=== PATIENT | female | born 1985 | race Caucasian/White ===

== ENCOUNTER 2020-05-27 13:38 | Outpatient (CLI) | payer OTHER, SELFPAY ==
--- NOTE | 2020-06-01 12:00 | WPDHOLTEREM ---
Holter/Event Monitor Holter/Event Monitor Date of procedure: 06/01/20 Procedure Type: 24 hour Holter monitor Diagnosis: Palpitations Indications: Palpitations Image/Tracing Quality: Adequate With significant artifact in some rhythm strips Finding: Predominant underlying rhythm is sinus rhythm with episodes of sinus tachycardia; heart rate ranges between 60 beats per minute to 156 beats per minute, average heart rate 91 beats per minute. Ventricular ectopy was seen in the form of isolated PVCs, couplets; and 1 episode of 6 beat ventricular run at a heart rate of 152 beats per minute. Rare supraventricular ectopy was seen in the form of single PACs. QRS duration within normal limits. No other significant arrhythmias or heart blocks were noted. Patient did not report any symptoms in the patient diary. Conclusion: 1. Predominant underlying rhythm is sinus rhythm, average heart rate high normal at 91 beats per minute. 2. Ventricular ectopy was seen in the form of isolated PVCs, couplets; 1 episode of 6 beat ventricular run without associated symptoms. Rare supraventricular ectopy was seen in the form of PACs. 3. No other significant arrhythmias or heart blocks were noted. 4. Patient did not report any symptoms in the patient diary. 5. Clinical correlation is recommended.
== END 2020-05-27 13:39 | disposition home or self-care (01) ==
PROVIDERS: PCP Internal Medicine; Visit Provider Internal Medicine
DX: R00.2 Palpitations (principal)
CPT/HCPCS: 93225; 93226

== ENCOUNTER 2020-06-18 07:20 | Outpatient (CLI) | payer OTHER, SELFPAY ==
[2020-06-18 07:59] LABS: Alanine Aminotransferase 20 U/L (4-35); Albumin Level 3.9 g/dL (3.5-5.1); Alkaline Phosphatase 52 U/L (38-126); Anion Gap 5 mmol/L (8-16); Aspartate Amino Transferase 23 U/L (14-36); Bilirubin,Total 0.2 mg/dL (0.2-1.3); Blood Urea Nitrogen 9 mg/dL (7-17); Calcium 8.6 mg/dL (8.4-10.2); Carbon Dioxide 29 mmol/L (22-30); Chloride 104 mmol/L (98-107); Cholesterol 140 mg/dL (0-200); Estimated Glomerular Filt Rate > 60; Glucose 96 mg/dL (65-105); HDL Direct 49 mg/dL; Sodium 138 mmol/L (137-145); Triglycerides 61 mg/dL (<150)
[2020-06-18 08:09] LABS: LDL Cholesterol Direct 72 mg/dL
== END 2020-06-18 07:21 | disposition home or self-care (01) ==
PROVIDERS: PCP Internal Medicine; Visit Provider Internal Medicine
DX: Z13.220 Encounter for screening for lipoid disorders (principal); R00.2 Palpitations; Z51.81 Encounter for therapeutic drug level monitoring; Z79.899 Other long term (current) drug therapy
CPT/HCPCS: 36415; 80053; 80061

== ENCOUNTER 2021-07-02 12:16 | Outpatient (CLI) | payer OTHER, SELFPAY ==
[2021-07-02 13:51] LABS: Alanine Aminotransferase 15 U/L (4-35); Albumin Level 4.4 g/dL (3.5-5.1); Alkaline Phosphatase 48 U/L (38-126); Anion Gap 5 mmol/L (8-16); Aspartate Amino Transferase 24 U/L (14-36); Bilirubin,Total 0.3 mg/dL (0.2-1.3); Blood Urea Nitrogen 10 mg/dL (7-17); Calcium 9.1 mg/dL (8.4-10.2); Carbon Dioxide 32 mmol/L (22-30); Chloride 101 mmol/L (98-107); Estimated Glomerular Filt Rate > 60; Glucose 103 mg/dL (65-110); Potassium 3.8 mmol/L (3.4-5.0); Sodium 138 mmol/L (137-145)
[2021-07-02 14:27] LABS: Vitamin D 25 Hydroxy 68.1 ng/mL
== END 2021-07-02 12:17 | disposition home or self-care (01) ==
PROVIDERS: PCP Internal Medicine; Visit Provider Obstetrics & Gynecology
DX: R63.4 Abnormal weight loss (principal); L65.9 Nonscarring hair loss, unspecified
CPT/HCPCS: 36415; 80053; 82306; 82607; 84443

== ENCOUNTER 2022-04-13 15:37 | Outpatient (CLI) | payer OTHER, SELFPAY ==
[2022-04-13 15:53] LABS: Hematocrit 42.6 % (37.0-47.0); Hemoglobin 13.3 g/dL (12.0-15.0); Mean Corpuscular HGB Conc 31.2 g/dl (32-36); Mean Corpuscular Volume 92.8 fl (80-100); Mean Platelet Volume 9.4 fl (7.4-10.4); Platelet Count Result 304 k/mm3 (150-375); Red Blood Count 4.59 M/mm3 (4.2-5.4); Red Cell Distribution Width 12.2 % (11.5-14.5); White Blood Count 7.4 K/mm3 (4.5-10.0)
[2022-04-13 16:13] LABS: Alanine Aminotransferase 17 U/L (6-35); Albumin Level 4.3 g/dL (3.5-5.1); Alkaline Phosphatase 46 U/L (38-126); Anion Gap 8 mmol/L (8-16); Aspartate Amino Transferase 25 U/L (14-36); Bilirubin,Total 0.2 mg/dL (0.2-1.3); Blood Urea Nitrogen 15 mg/dL (7-17); Calcium 8.8 mg/dL (8.4-10.2); Carbon Dioxide 29 mmol/L (22-30); Chloride 103 mmol/L (98-107); Estimated Glomerular Filt Rate > 60; Glucose 99 mg/dL (65-110); Potassium 3.8 mmol/L (3.4-5.0); Sodium 140 mmol/L (137-145)
[2022-04-13 16:30] LABS: Vitamin D 25 Hydroxy 79.7 ng/mL
[2022-04-15 11:58] LABS: FSH 8.9 mIU/mL (***); LH 6.3 mIU/mL (***)
== END 2022-04-13 15:38 | disposition home or self-care (01) ==
LOC: ANHLAB 15:40
PROVIDERS: PCP Internal Medicine; Visit Provider Obstetrics & Gynecology
DX: R53.83 Other fatigue (principal)
CPT/HCPCS: 36415; 80053; 82306; 82607; 83001; 83002; 84443; 85027

== ENCOUNTER 2024-02-25 07:42 | Outpatient (CLI) | payer OTHER, SELFPAY ==
[2024-02-25 08:03] LABS: Basophils Percent Auto 0.5 % (0.2-1.2); Eosinophils Absolute Auto 0.1 K/mm3 (0-0.3); Hematocrit 42.1 % (37.0-47.0); Hemoglobin 13.6 g/dL (12.0-15.0); Immature Granulocyte Absolute 0.01 K/mm3 (0.00-0.031); Immature Granulocyte Percent A 0.2 % (0-0.5); Lymphocytes Absolute Auto 1.41 K/mm3 (0.9-3.2); Lymphocytes Percent Auto 25.2 % (18.3-44.2); Mean Corpuscular HGB Conc 32.3 g/dl (32-36); Mean Corpuscular Volume 92.7 fl (80-100); Mean Platelet Volume 9.3 fl (7.4-10.4); Monocytes Absolute Auto 0.5 K/mm3 (0.1-0.6); Monocytes Percent Auto 9.5 % (2.6-8.5); Neutrophils Absolute Auto 3.5 K/mm3 (1.3-6.7); Neutrophils Percent Auto 62.6 % (45.5-73.1); Platelet Count Result 287 k/mm3 (150-375); Red Blood Count 4.54 M/mm3 (4.2-5.4); Red Cell Distribution Width 12.4 % (11.5-14.5); White Blood Count 5.6 K/mm3 (4.5-10.0)
[2024-02-25 09:21] LABS: Alanine Aminotransferase 16 U/L (6-35); Albumin Level 4.5 g/dL (3.5-5.1); Alkaline Phosphatase 45 U/L (38-126); Anion Gap 9 mmol/L (4-12); Aspartate Amino Transferase 26 U/L (14-36); Bilirubin,Total 0.5 mg/dL (0.2-1.3); Blood Urea Nitrogen 16 mg/dL (7-17); Carbon Dioxide 28 mmol/L (22-30); Chloride 100 mmol/L (98-107); Cholesterol 198 mg/dL (0-200); Estimated Glomerular Filt Rate > 60; Glucose 85 mg/dL (65-110); HDL Direct 77 mg/dL; Sodium 137 mmol/L (137-145); Triglycerides 58 mg/dL (<150)
[2024-02-25 09:32] LABS: LDL Cholesterol Direct 96 mg/dL
[2024-02-25 10:15] LABS: Vitamin D 25 Hydroxy 48.3 ng/mL
[2024-02-29 13:28] LABS: Thyroid Peroxidase Antibodies <1 IU/mL (<9)
== END 2024-02-25 07:43 | disposition home or self-care (01) ==
PROVIDERS: PCP Clinical Nurse Specialist; Visit Provider Clinical Nurse Specialist
DX: Z13.220 Encounter for screening for lipoid disorders (principal); E55.9 Vitamin D deficiency, unspecified; F41.9 Anxiety disorder, unspecified; R53.83 Other fatigue; Z13.29 Encounter for screening for other suspected endocrine disorder
CPT/HCPCS: 36415; 80053; 80061; 82306; 84443; 85025; 86376

== ENCOUNTER 2024-05-22 15:45 | Outpatient (RCR) | payer OTHER, SELFPAY ==
--- NOTE | 2024-04-25 08:57 | OPREHPOC ---
Outpatient Therapy Plan of Care This is a Multidisciplinary Plan of Care that may contain components documented by all disciplines (PT, OT, and ST.) PT Problem 1 PT Problem #1 Knowledge Deficit PT Goal 1 Goal / Goal Update Pt to be IND with issued HEP Target Visit 6 PT Problem 2 PT Problem #2 Pain PT Goal 1 Goal / Goal Update Pt to report back pain no greater than 3/10 in the last week. Target Visit 6 PT Goal 2 Goal / Goal Update Pt to report 75% improvement in overall symptoms. Target Visit 6 PT Problem 3 PT Problem #3 Impaired Functional Mobil PT Goal 1 Goal / Goal Update Pt to report being able to stand for 2 hours to be able to perform her required work tasks without an increase in pain. Target Visit 6 PT Goal 2 Goal / Goal Update Pt to demonstrate a functional lift and carry with 30lb from ground level. Target Visit 6 PT Problem 4 PT Problem #4 Impaired Functional Mobil PT Goal 1 Goal / Goal Update Pt to demonstrate good body mechanics with a functional movement assessment. Target Visit 6
--- NOTE | 2024-04-25 08:57 | PTOPEVAL1 ---
Assessment and note entered by Violetta Jim, PT, DPT Evaluation Information Assessment Status Evaluation Diagnosis low back pain ICD-10 Condition Codes (PT) Pain in low back M54.50,M54.13 Subjective Information Pt states every 2-3 years her back will go out , she will go to the chiropractor, and her back will get better. She states she has had pain for the last 7-8 months without any relief. She also reports intermittent tinging in her neck and down her L arm into her hands. She declines radicular pain, states it is a continuous ache. Sitting and sitting for any length of time increases her pain. She states it is a tolerable pain, it is just annoying. Pt states she exercises regularly. Reported Pain Level Pain Score 2: Self Report Assessment PT Clinical Summary Pt presents to therapy today for her initial evaluation with a diagnosis of intermittent low back pain and also reports of cervical radiculopathy. Upon evaluation pt demonstrates good lumbar and LE ROM as well as strength, she has minor deficits in her R hip strength. Pt demonstrates decreased postural awareness with a functional movement assessment, stands with an anterior pelvic tilt, and sits with a slightly rounded posture. She also demonstrates pelvic asymmetry this date likely contributing to her limited standing and walking tolerance. Skilled therapy services are indicated to address the deficits noted above, to manage pain, and to improve functional mobility. Plan of Care Interventions Electrical Stimulation,Gait Training,Hot Pack/Cold Pack,Manual Therapy,Neuro Re-education,Patient/ Caregiver Educati,Therapeutic Activities, Therapeutic Exercise PT Services Indicated Yes Treatment Frequency and 1x/wk for 6 visits Duration These treatments will address the objective and functional deficits as defined above. The patient will be advanced safely and appropriately in order for the patient to progress towards his/her prior level of function. Additional exercises will be introduced and as well as a comprehensive home exercise program upon discharge, if needed, ?to ensure carryover of functional gains achieved in the clinic. This treatment plan has been reviewed and agreement upon by the patient.
--- NOTE | 2024-05-22 16:23 | PTOPDC ---
Assessment and note entered by Violetta Jim, PT, DPT Evaluation Information Assessment Status Discharge Diagnosis low back pain ICD-10 Condition Codes (PT) Pain in low back M54.50,M54.13 Subjective Information Pt states overall she is doing better. Reported Pain Level Pain Score 0: Self Report Assessment PT Clinical Summary Pt has completed 4 visits of skilled therapy to treat her back pain. Today she demonstrates improved core strength but still decreased from normal. Her body mechanics has improved as well. Pt requested to be done with therapy at this time as she is too busy to commit to regular visits and is having surgery next week.
== END 2024-05-23 09:02 | disposition home or self-care (01) ==
LOC: ANHGOSHPT 15:45
PROVIDERS: PCP Clinical Nurse Specialist; Visit Provider Clinical Nurse Specialist
DX: M54.50 Low back pain, unspecified (principal)
CPT/HCPCS: 97110; 97112; 97161; 97530